=== PATIENT | female | born 1945 | race Caucasian/White ===

== ENCOUNTER 2021-04-05 09:38 | Outpatient (CLI) | payer OTHER | END 2021-04-05 09:43 | disposition home or self-care (01) | LOC: RX STUDY 09:38 | DX: N81.89 Other female genital prolapse (principal) | CPT/HCPCS: 51600; 74455; Q9958 ==

== ENCOUNTER 2021-04-05 09:50 | Outpatient (CLI) | payer OTHER | END 2021-04-05 09:52 | disposition home or self-care (01) | LOC: LAB 09:50 | PROVIDERS: ATTEND Urology | DX: N39.0 Urinary tract infection, site not specified (principal) ==